=== PATIENT | male | born 1985 | race Caucasian/White ===

== ENCOUNTER 2020-06-16 09:06 | Outpatient (CLI) | payer BC, MEDICAID, SELFPAY ==
--- NOTE | 2020-06-16 09:13 | US_ITS ---
WS: [id number] TESTICULAR ULTRASOUND HISTORY: RETRACTILE TESTIS COMPARISON: None available. TECHNIQUE: Real-time and color Doppler imaging or utilized to perform a testicular ultrasound. Right testicle: 4.5 cm x 2.6 cm x 2.5 cm. Normal size and echogenicity. No mass or torsion. Small echogenic focus consistent microcalcification s in the mid testes. Normal color Doppler is present throughout. Systolic and diastolic velocities are both present. No significant hydrocele. Right epididymis: Normal epididymis with no increased vascularity. Left testicle: 4.3 cm x 3.2 cm x 2.4 cm. Normal size and echogenicity. No mass or torsion. Normal color Doppler is present throughout. Systolic and diastolic velocities are both present. No significant hydrocele. Left epididymis: Mild heterogeneity within the epididymal head. No definite epididymitis. US/US scrotum [id number] IMPRESSION: 1. No testicular mass or torsion. 2. No hydrocele.
== END 2020-06-16 09:07 | disposition home or self-care (01) ==
LOC: RAD 09:11
PROVIDERS: PCP Registered Nurse; Visit Provider Registered Nurse
DX: Q55.22 Retractile testis (principal)
CPT/HCPCS: 76870

== ENCOUNTER → 2020-08-02 12:56 | Outpatient (BNVA) | payer BC, MEDICAID, SELFPAY | PROVIDERS: PCP Registered Nurse; Visit Provider Nurse Practitioner Family | DX: Q55.22 Retractile testis (principal) | CPT/HCPCS: 87635 ==

== ENCOUNTER 2020-08-05 11:06 | Day surgery (SDC) | payer BC, MEDICAID, SELFPAY ==
[2020-08-04 15:47] VITALS: BMI 22.4
[2020-08-05] VITALS (8 sets, daily range): BP systolic 101–117; BP diastolic 64–71; PULSE 54–74; RESP 16–18; TEMP 36.2–36.9; O2SAT 98–100
[2020-08-05] MEDS: sodium chloride 0.9% 1,000 ML 30 ML IV (11:30)
--- NOTE | 2020-08-05 13:24 | P.HPUD_ITS ---
Surgery/Procedure H&P Update DATE OF PROCEDURE: August 05, 2020 DATE H&P PERFORMED: 07/25/20 H&P UPDATE INFORMATION: I have reviewed H&P completed within last 30 days, I have examined patient prior to procedure, No changes to prior documentation and H[place] is in [facility] [place] date indicated CHANGES TO PREVIOUS DOCUMENTATION: Reviewed the procedure again in detail with perioperative expectations and limitations. Questions answered. They seemed c ontent PREOP DIAGNOSIS: Bilateral retractile testicles with pain PLANNED PROCEDURE: Operation Date: 08/05/20 13:00 Proposed Procedures p SCROTAL EXPLORATION BILATERAL TESTICULAR FIXATION 27920 Q55.22(Bilateral) - Angelo Call MD
--- NOTE | 2020-08-05 13:30 | PM.OP ---
Operative Report Date of procedure: August 05, 2020 Pre-op Diagnosis: Bilateral retractile testicles with pain Post-op diagnosis: same Procedure Done: 1. 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 Actually has to manually reduce the testicles. No clear evidence of torsion and more consistent with retraction. Grossly normal exam. Reviewed his options which were fairly limited. Ultimately he elected for bilateral testicular fixation with division of cremasteric muscles Procedure: After routine preoperative evaluation examination and obtaining of informed consent he was taken to the operating suite on 08/05/2020 where general anesthesia was administered without difficulty after appropriate timeout was performed, SCDs confirmed to be functioning, preoperative antibiotics administered, beta-erin protocol confirmed. Prepped and draped in usual sterile fashion in supine position paying careful attention to avoiding pressure points. Median raphae incision was made on the upper portion of the scrotum initially over the left hemiscrotal and incision taken down into the left hemiscrotum onto the tunica vaginalis. Tunica vaginalis was opened testicle inspected and found to be within normal limits. The cord was dissected above the tunica vaginalis and the cremasteric muscle fibers were identified and carefully dissected and divided with electrocautery. Attention was paid to avoiding the vascular structures and the cord and the vas deferens. This was accomplished. The testicle was then fixed in the left hemiscrotum laterally and distally securing the adventitial tissue at the junction of the testicular adventitial connections to the tunica vaginalis. The right hemiscrotum was then entered with electrocautery and the same procedure was performed. The wound was then copiously irrigated with normal saline. Hemostasis was obtained. Incision was closed in layers utilizing 3-0 Vicryl for the dartos layer including the septum and then the skin edges were approximated with a running subcuticular 4-0 Vicryl after irrigation of the subcutaneous tissue. Dermabond was applied. Scrotal support over fluff dressings was applied. Tolerated procedure well without complications and was awakened in the operating room and returned to the care of room in stable condition. PLANS: 1. Scrotal support for least a week. Light compression with dressings in the scrotal support for several days to reduce the risk of swelling and bleeding. 2. Follow-up in about 6 weeks. Call for any concerns or questions.
--- NOTE | 2020-08-05 13:42 | ANES.PREANE2 ---
Pre-Anesthetic Assessment Pre-Anesthetic Assessment: Height/Weight: Height 1.85 m Weight 77.111 kg Temp Pulse Resp BP Pulse Ox 98.1 F 54 L 16 111/66 99 08/05/20 11:19 08/05/20 11:19 08/05/20 11:19 08/05/20 11:19 08/05/20 11:19 Preop Diagnosis: Bilateral retractile testicles with pain Proposed Procedure: Operation Date: 08/05/20 13:00 Proposed Procedures p SCROTAL EXPLORATION BILATERAL TESTICULAR FIXATION 03752 Q55.22(Bilateral) - Angelo Call MD Was Beta Noah taken within 24 hours: N/A Was Clonidine taken within 24 hours: N/A Last intake: Intake Last Liquid Date 08/04/20 Last Liquid Time 23:55 Last Solid Date 08/05/20 Last Solid Time 21:00 Social: Social History: Tobacco and No alcohol Exam: Pre-Anes Outpt Exam: alert, oriented x 3 and regular rate & rhythm Airway: Submandibular: WNL Cervical ROM: WNL MP: 2 Dentition: Full History/ROS: No significant history except as noted Anesthetic Plan: ASA status: 2 Anesthesia: General Risk of > 500 ml blood loss (7ml/kg in children): No PFSH Anesthesia PFSH: Medical History Retractile testis Social History Smoking and tobacco status: current some day smoker Alcohol intake: current Alcohol intake frequency: few times a month Marital status: Current occupational status: employed Current occupation: self employed History of recent travel: No Data Anesthesia Cardiac Studies: No Data to Display
--- NOTE | 2020-08-05 14:57 | SUR.PHASEI ---
pt sleeping quietly vss iv patent fluffs and scrotal support D/I
--- NOTE | 2020-08-05 15:14 | ANE.PACU2 ---
Inpatient post-anesthesia follow up: Airway intact: Yes Vital signs: Temperature 97.2 F Pulse Rate 62 Respiratory Rate 17 Blood Pressure 101/65 Pulse Oximetry 100 Oxygen Delivery Me thod Room Air Oxygen Flow Rate 8 Fraction of Inspir ed Oxygen Hydration adequate: Yes Nausea and vomiting: No Pain level: 1 Mental status: Baseline
[2020-08-05] MEDS: oxyCODONE-APAP 5-325 mg Tablet 1 TAB PO (15:52)
== END 2020-08-05 16:00 | disposition home or self-care (01) ==
PROVIDERS: PCP Registered Nurse; Visit Provider Urology
PROC: (CPT 55110; principal; 2020-08-05 13:00)
DX: Q55.22 Retractile testis (principal); F17.210 Nicotine dependence, cigarettes, uncomplicated
CPT/HCPCS: 54640; J0690; J1100; J1885; J2405; J2704; J3010; J3490; J7030